=== PATIENT | female | born 1970 | race African-American/Black ===

== ENCOUNTER 2024-11-13 08:30 | Outpatient (CLI) | payer OTHER, SELFPAY | END 2024-11-13 08:31 | disposition home or self-care (01) | PROVIDERS: PCP Family Medicine; Visit Provider Family Medicine | DX: E03.9 Hypothyroidism, unspecified (principal); Z13.0 Encounter for screening for diseases of the blood and blood-forming organs and certain disorders involving the immune mechanism; Z13.1 Encounter for screening for diabetes mellitus | CPT/HCPCS: 80048; 84439; 84443 ==